=== PATIENT | male | born 1980 | race Two or more races ===

== ENCOUNTER 2023-01-27 16:45 | Emergency (ER) | payer OTHER ==
[2023-01-27 16:54] VITALS: BP 133/70; PULSE 100; RESP 18; TEMP 97.8; BMI 36.0
[2023-01-27] MEDS ORDERED: IBUPROFEN 600 MG TABLET (FP) PO ONE ×2 (18:43→18:47)
== END 2023-01-27 20:33 | disposition home or self-care (01) ==
LOC: JERFT 16:45
DX: M25.512 Pain in left shoulder (principal); M79.602 Pain in left arm; W18.39XA Other fall on same level, initial encounter
CPT/HCPCS: 73030-TC-LT-FY; 99283-25